=== PATIENT | male | born 1950 | race Caucasian/White ===

== ENCOUNTER 2020-06-28 19:34 | Day surgery (SDCO) | payer MEDICARE, OTHER ==
[~2020-06-28 19:34] MED LIST: ATORVASTATIN CA80 MG PO; LISINOPRIL-HCT1 EAC1 PO; NORVASC5 MG PO; PERCOCET 5-3251 EACH PO; TOPROL XL 25MG25 MG PO
[2020-06-28 20:16] LABS: BASOPHIL 0.2 % (0-2); EOSINOPHIL 0.1 % (0-7); HCT 39.6 % (42.0-52.0); HGB 14.6 g/dl (13.2-18.0); MCH 34.4 pg (25.0-31.0); MCHC 36.9 g/dL (32.0-36.0); MCV 93.2 fL (78.0-100.0); MONOCYTE 7.5 % (0-12); MPV 9.2 fL (6.0-9.5); NEUTROPHIL 87.5 % (41-80); NRBC 0; PLT 179 K/uL (150-400); RBC 4.25 M/uL (4.70-6.00); RDW 11.6 % (11.5-14.0); WBC 13.2 K/uL (4.0-10.5)
[2020-06-28 20:24] LABS: ALBUMIN 4.6 g/dL (3.4-5.0); ALKALINE PHOSHATASE 88 U/L (46-116); ALT 33 U/L (16-63); AST 44 U/L (15-37); BILIRUBIN - TOTAL 1.3 mg/dL (0.2-1.0); BUN 18 mg/dL (7-18); BUN/CREAT RATIO (CALC) 21.7 RATIO; CHLORIDE 81 mmol/L (98-107); CO2 (BICARBONATE) 27 mmol/L (21-32); CREATININE 0.83 mg/dL (0.67-1.17); GLUCOSE 124 mg/dL (74-106); POTASSIUM 4.1 mmol/L (3.5-5.1); TOTAL PROTEIN 7.6 g/dL (6.4-8.2)
[2020-06-28 23:26] LABS: INR 1.02 (0.9-1.2); PROTHROMBIN TIME 12.7 SECONDS (11.4-13.6); PTT 36.6 SECONDS (22.2-34.7)
[2020-06-28 23:32] LABS: MAGNESIUM 1.3 mg/dL (1.8-2.4); PHOSPHORUS 3.5 mg/dL (2.6-4.7)
[2020-06-29] MEDS ORDERED: LIPITOR40 MG PO (00:21)
[2020-06-29] MEDS ORDERED: VALSARTAN320 MG PO (00:22)
[2020-06-29] MEDS ORDERED: TOPROL XL 50 MG50 MG PO (00:23)
[2020-06-29] MEDS ORDERED: HCTZ25 MG PO (00:23)
[2020-06-29] MEDS ORDERED: VITAMIN D350 MCG PO (00:24)
[2020-06-29] MEDS ORDERED: MOBIC7.5 MG PO (00:24)
[2020-06-29] MEDS ORDERED: PROTONIX 40MG T40 MG PO (00:24)
[2020-06-29] MEDS ORDERED: COQ-1030 MG PO (00:25)
[2020-06-29] MEDS ORDERED: CLARITIN10 MG PO (00:25)
[2020-06-29] MEDS ORDERED: ASPIRIN EC81 MG PO (00:26)
[2020-06-29] MEDS ORDERED: AMLODIPINE BESY10 MG PO (00:26)
[2020-06-29 03:40] LABS: BILIRUBIN NEGATIVE (NEGATIVE); BLOOD NEGATIVE Ery/uL (NEGATIVE); CLARITY CLEAR (CLEAR); COLOR YELLOW (YELLOW); GLUCOSE (U) NORMAL (NORMAL); LEUKOCYTES NEGATIVE Leu/uL (NEGATIVE); NITRITE NEGATIVE (NEGATIVE); PROTEIN NEGATIVE (NEGATIVE); UROBILINOGEN 0.2 mg/dL (0.2-1.0)
--- NOTE | 2020-06-29 04:06 | NUR ---
PT HEPARIN WAS TURNED OFF AT 0400 DUE TO PTT, PER ORDERS. WILL CONTINUE TO MONITOR
--- NOTE | 2020-06-29 05:03 | NUR ---
HEPARIN WAS RESTARTED AT RATE ACCORDING TO PTT, IT IS GOING AT 7.6 ML/HR. ORDER FOR PTT WILL BE DRAWN IN 5 HRS
[2020-06-29 06:21] LABS: BASOPHIL 0.4 % (0-2); EOSINOPHIL 1.1 % (0-7); HCT 33.8 % (42.0-52.0); HGB 12.5 g/dl (13.2-18.0); LYMPHOCYTE 6.8 % (15-48); MCH 34.2 pg (25.0-31.0); MCV 92.6 fL (78.0-100.0); MONOCYTE 9.6 % (0-12); MPV 9.2 fL (6.0-9.5); NEUTROPHIL 81.7 % (41-80); NRBC 0; PLT 150 K/uL (150-400); RBC 3.65 M/uL (4.70-6.00); RDW 11.3 % (11.5-14.0); WBC 10.2 K/uL (4.0-10.5)
[2020-06-29 06:52] LABS: CKMB 4.3 ng/mL (0.0-3.6)
[2020-06-29 07:02] LABS: ALBUMIN 3.4 g/dL (3.4-5.0); BILIRUBIN - TOTAL 1.2 mg/dL (0.2-1.0); BUN/CREAT RATIO (CALC) 15.2 RATIO; CREATININE 0.92 mg/dL (0.67-1.17); GLOBULIN (CALCULATION) 2.4 g/dL; POTASSIUM 4.1 mmol/L (3.5-5.1); TOTAL PROTEIN 5.8 g/dL (6.4-8.2)
[2020-06-29] MEDS ORDERED: HEPARIN IM/IV (08:35)
--- NOTE | 2020-06-29 09:39 | NUR ---
REPORT CALLED TO JUAN C VAUGHN AT [facility]. EMS TRANSPORTED PT AT 0920. HEPARIN GTT AT 7.6ML/HR. ALL QUESTIONS ANSWERED.
--- NOTE | 2020-06-29 11:44 | NUR ---
06/29/20 Patient was transferred to [facility].
[2020-07-03] MEDS ORDERED: DIOVAN160 MG PO (15:32)
[2020-07-03] MEDS ORDERED: NORVASC5 MG PO (15:32)
[2020-07-10] MEDS ORDERED: MOBIC7.5 MG PO (06:58)
== END 2020-06-29 09:20 | disposition other institution (70) ==
LOC: FER 19:34 → FTCU 22:38
PROVIDERS: Emergency Medicine; Nurse Practitioner; ADMIT Internal Medicine
DX: I21.4 Non-ST elevation (NSTEMI) myocardial infarction (principal); I25.10 Atherosclerotic heart disease of native coronary artery without angina pectoris; E87.1 Hypo-osmolality and hyponatremia; I10 Essential (primary) hypertension; F10.10 Alcohol abuse, uncomplicated; Z95.1 Presence of aortocoronary bypass graft; Z20.822 Contact with and (suspected) exposure to COVID-19; Z79.899 Other long term (current) drug therapy; Z86.79 Personal history of other diseases of the circulatory system; Z87.891 Personal history of nicotine dependence
CPT/HCPCS: 36415; 70450; 71045; 80053; 80061; 81003; 82553; 83605; 83735; 83880; 84100; 84145; 84484; 85025; 85610; 85730; 93005; 94010; 96372; G0378; G0480; J1644; J2060; J2405; J3411; J3475; J7030; U0002

== ENCOUNTER → 2020-07-10 | Day surgery (SDC) | payer MEDICARE, OTHER ==
[~2020-07-10] MED LIST changes: +AMLODIPINE BESY10 MG PO; +ASPIRIN EC81 MG PO; +CLARITIN10 MG PO; +COQ-1030 MG PO; +DIOVAN160 MG PO; +HCTZ25 MG PO; +HEPARIN IM/IV; +LIPITOR40 MG PO; +MOBIC7.5 MG PO; +PROTONIX 40MG T40 MG PO; +TOPROL XL 50 MG50 MG PO; +VALSARTAN320 MG PO; +VITAMIN D350 MCG PO
[2020-07-10 07:41] LABS: ALBUMIN 4.1 g/dL (3.4-5.0); BILIRUBIN - TOTAL 0.8 mg/dL (0.2-1.0); CREATININE 0.93 mg/dL (0.67-1.17); GLOBULIN (CALCULATION) 3.5 g/dL; POTASSIUM 4.3 mmol/L (3.5-5.1); TOTAL PROTEIN 7.6 g/dL (6.4-8.2)
== END | disposition home or self-care (01) ==
LOC: FAS 06:32
PROVIDERS: Nurse Anesthetist, Certified Registered
DX: D12.6 Benign neoplasm of colon, unspecified (principal); K21.9 Gastro-esophageal reflux disease without esophagitis; K57.30 Diverticulosis of large intestine without perforation or abscess without bleeding; I25.10 Atherosclerotic heart disease of native coronary artery without angina pectoris; I10 Essential (primary) hypertension; I48.0 Paroxysmal atrial fibrillation; I25.2 Old myocardial infarction; G47.30 Sleep apnea, unspecified; M19.90 Unspecified osteoarthritis, unspecified site; Z95.1 Presence of aortocoronary bypass graft; Z90.49 Acquired absence of other specified parts of digestive tract; Z95.0 Presence of cardiac pacemaker; Z79.899 Other long term (current) drug therapy; Z86.59 Personal history of other mental and behavioral disorders; Z82.49 Family history of ischemic heart disease and other diseases of the circulatory system; Z87.891 Personal history of nicotine dependence; Z20.822 Contact with and (suspected) exposure to COVID-19
CPT/HCPCS: 36415; 80053; 88305; J2704; J7120